=== PATIENT | male | born 1950 | race Two or more races ===

== ENCOUNTER 2016-04-15 10:21 | Inpatient (IN) | payer MEDICARE, MEDICAID ==
[~2016-04-15 10:21] MED LIST: ASPIRIN81 M1 PO; CENTRUM SILVER1 EAC7 PO; FISH OIL 11000 MG/CA PO; INVOKAMET 150-1 EAC1 PO; LEVEMIR FL100 UNIT/2 SC; LISINOPRIL-HCT1 EAC1 PO; NOVOLOG FL100 UNIT/2 PO; NOVOLOG FL100 UNIT/2 SC; SIMVASTATIN20 M1 PO; ZESTRIL20 M3 PO
[2016-04-15] MEDS ORDERED: INVOKAMET 50-11 EACH PO (10:50)
[2016-04-15 11:18] LABS: INR 0.9 INR (0.9-1.1); PROTHROMBIN TIME 10.8 SECONDS (9.0-13.6)
[2016-04-15 11:25] LABS: ANION GAP 14 mmol/L (0-20); BLOOD UREA NITROGEN 19 mg/dl (6-24); CALCIUM 9.1 mg/dl (8.5-10.5); CARBON DIOXIDE-VENOUS 25 mmol/L (22-32); CHLORIDE 102 mmol/l (96-110); CREATININE 0.75 mg/dl (0.60-1.30); GLUCOSE 194 mg/dL (70-110); POTASSIUM 4.2 mmol/L (3.7-5.1); SODIUM 137 mmol/L (135-145); eGFR VALUE FOR BLACK >90 mL/Min
[2016-04-16 04:46] LABS: BASO % 0.1 % (0-2); HCT-HEMATOCRIT 39.8 % (36.0-53.5); HGB-HEMOGLOBIN 13.8 gm/dl (13.5-17.0); IMMATURE GRANULOCYTES ABSOLUTE 0.04 tho/cmm (0-0.03); IMMATURE GRANULOCYTES PERCENT 0.3 % (0-0.3); LYMPH % 7.4 % (20-45); MCH (MEAN CORPUSCULAR HGB) 30.7 pg (28.0-32.0); MCHC MEAN CORPUSCULAR HGB CONC 34.7 % (32.0-36.0); MCV (MEAN CELL VOLUME) 88.6 fl (82.0-96.0); MEAN PLATELET VOLUME 10.3 cmc (9.4-12.4); MONO % 6.7 % (0-12); MONOCYTE ABSOLUTE COUNT 0.9 tho/cmm (0.0-1.2); NEUTROPHIL ABSOLUTE COUNT 11.6 tho/cmm (1.6-8.0); NEUTROPHIL-AUTOMATED 11.6 tho/cmm (1.6-8.0); NEUTROPHILS % 85.5 % (40-80); PLATELET COUNT 199 tho/cmm (150-450); RED BLOOD COUNT 4.49 mil/cmm (4.40-5.70); RED CELL DISTRIBUTION WIDTH 13.8 % (12.4-16.4); WHITE BLOOD COUNT 13.5 tho/cmm (4.0-10.0)
[2016-04-16 04:57] LABS: ANION GAP 13 mmol/L (0-20); BLOOD UREA NITROGEN 19 mg/dl (6-24); CARBON DIOXIDE-VENOUS 25 mmol/L (22-32); CHLORIDE 100 mmol/l (96-110); CREATININE 0.97 mg/dl (0.60-1.30); GLUCOSE 248 mg/dL (70-110); POTASSIUM 4.1 mmol/L (3.7-5.1); SODIUM 134 mmol/L (135-145); eGFR VALUE FOR BLACK >90 mL/Min
[2016-04-18] MEDS ORDERED: NORCO 5-325 TA1 EACH PO (08:48)
[2016-04-18] MEDS ORDERED: NOVOLOG100 UNITS/ SC (11:26)
== END 2016-04-18 15:50 | DRG 331 ==
LOC: SHSB 10:21 → ORW 12:13 → PACU 17:25 → 5WD 18:00
PROVIDERS: Physician Assistant; ADMIT Surgery
DX: D12.2 Benign neoplasm of ascending colon (principal); I10 Essential (primary) hypertension; E11.9 Type 2 diabetes mellitus without complications; E78.5 Hyperlipidemia, unspecified; Z79.82 Long term (current) use of aspirin; Z79.4 Long term (current) use of insulin
CPT/HCPCS: C9290; J0131; J0690; J1335; J1644; J1650; J1815; J1885; J2250; J2270; J2405; J7030